=== PATIENT | male | born 1960 | race African-American/Black ===

== ENCOUNTER 2019-01-01 20:41 | Emergency (ER) | payer MEDICARE, MEDICAID ==
[~2019-01-01] VITALS: Ht 170.2 cm; Wt 75.0 kg
[~2019-01-01 20:41] MED LIST: AMLO2.5T2 PO
[2019-01-01] MEDS ORDERED: IBUPROFEN 800MG TABLET PO ONE (22:45)
[2019-01-02 00:41] VITALS: BP 124/71
== END 2019-01-02 01:11 | disposition home or self-care (01) ==
LOC: ER 20:41
DX: M19.022 Primary osteoarthritis, left elbow (principal); I10 Essential (primary) hypertension; V89.2XXA Person injured in unspecified motor-vehicle accident, traffic, initial encounter; Y93.89 Activity, other specified; Y92.89 Other specified places as the place of occurrence of the external cause; Y99.8 Other external cause status
CPT/HCPCS: 73070; 99283; A4565

== ENCOUNTER 2021-04-07 15:55 | Emergency (ER) | payer MEDICARE, MEDICAID ==
[~2021-04-07] VITALS: Ht 170.2 cm; Wt 74.0 kg
[2021-04-07 15:57] VITALS: BP 189/111
[2021-04-08] MEDS ORDERED: BENZ-16 MT (16:35)
[2021-04-08] MEDS ORDERED: IBUP-2029 MT (16:35)
== END 2021-04-07 16:41 | disposition home or self-care (01) ==
LOC: ER 15:55
DX: U07.1 COVID-19 (principal); I10 Essential (primary) hypertension
CPT/HCPCS: 99283

== ENCOUNTER 2021-04-08 11:28 | Emergency (ER) | payer MEDICARE, MEDICAID ==
[~2021-04-08] VITALS: Ht 170.2 cm; Wt 73.0 kg
[2021-04-08 16:09] LABS: HEMOGLOBIN. 11.7 g/dL (14.0-18.0); MEAN CORPUSCULAR HEMOGLOBIN 27.1 pg (28.0-32.0); MEAN CORPUSCULAR VOLUME 83.3 fL (80.0-94.0); MEAN PLATELET VOLUME 8.3 fl (7.4-10.4); PLATELET 249 x1000/uL (130-400); RED BLOOD CELL COUNT 4.32 mill/uL (4.7-6.1); RED CELL DISTRIBUTION WIDTH 14.3 % (11.6-14.6)
[2021-04-08 16:14] LABS: CHLORIDE 109 mEq/L (98-107)
[2021-04-08 16:27] VITALS: BP 165/87
[2021-04-08] MEDS ORDERED: BENZ-16 MT (16:35)
[2021-04-08] MEDS ORDERED: IBUP-2029 MT (16:35)
[2021-04-08 18:07] LABS: PLATELET ESTIMATE NORMAL
== END 2021-04-08 17:34 | disposition home or self-care (01) ==
LOC: ER 11:28
DX: U07.1 COVID-19 (principal); I10 Essential (primary) hypertension
CPT/HCPCS: 36415; 71045; 80053; 83880; 84484; 85025; 93005; 99283